=== PATIENT | female | born 1990 ===

== ENCOUNTER 2019-02-02 19:40 | Inpatient (IN) | payer OTHER ==
[2019-02-02] MEDS ORDERED: DINOPROSTONE 10 MG VAGINAL SUPPOSITORY VG ONE (23:26)
[2019-02-02] MEDS ORDERED: AMPICILLIN - 2 GM in SODIUM CHLORIDE 100 ML IVPB ONE (23:28)
[2019-02-02] MEDS ORDERED: DEXTROSE 5%-LACTATED RINGERS 1,000 ML IV SCH (23:30)
[2019-02-02] MEDS ORDERED: PROMETHAZINE HCL 25 MG/1 ML VIAL IVPUSH ONE ×2 (23:30→23:32)
[2019-02-02] MEDS ORDERED: BUTORPHANOL TARTRATE 1 MG/ML VIAL IVPUSH ONE ×2 (23:30→23:32)
--- NOTE | 2019-02-02 23:35 | PN ---
Progress Note (short form) - Note Progress Note: cx 1 cxm 50 vx -3 mr, fhr cat 1, no contraction, cervidil inserted
--- NOTE | 2019-02-02 23:40 | HP ---
Past Medical History - Primary Care Physician PCP:: Matt Hamilton - Admission Chief Complaint: pregancy 39.3 weeks, prom History of Present Illness: 28 yo f 39.3 weeks, c/o of leakage of fluid since 11 am today, clear , no fever, no bleeding, cx 1 cm 50 vx -3 , fclear fluid seen in vaginal vault History Source: Patient Limitations to Obtaining History: No Limitations - Past Medical History ...: 2 ...Para: 1 ...Term: 1 ...: 0 ...Spon : 0 ...Induced : 0 ...LMP: 05/02/ ... Weeks Gestation by Dates: 39.3 ...EDC by Dates: 02/06/19 - Past Surgical History Past Surgical History: Yes: None (LT eye surgery) Hx Myomectomy: No Hx Transabdominal Cerclage: No - Smoking History Have you smoked in the past 12 months: No - Alcohol/Substance Use Hx Alcohol Use: No History of Substance Use: reports: None - Social History Usual Living Arrangement: Yes: With Spouse History of Recent Travel: No Home Medications - Allergies Allergies/Adverse Reactions: Allergies Allergy/AdvReac Type Severity Reaction Status Date / Time No Known Allergies Allergy Verified 02/02/19 20:07 - Home Medications Home Medications: Ambulatory Orders Vitamins (Sjr) - 1 tab PO DAILY 02/02/19 Review of Systems - Review of Systems Constitutional: reports: No Symptoms Eyes: reports: No Symptoms HENT: reports: No Symptoms Neck: reports: No Symptoms Cardiovascular: reports: No Symptoms Respiratory: reports: No Symptoms Gastrointestinal: reports: No Symptoms Genitourinary: reports: No Symptoms Breasts: reports: No Symptoms Reported Musculoskeletal: reports: No Symptoms Integumentary: reports: No Symptoms Neurological: reports: No Symptoms Endocrine: reports: No Symptoms Hematology/Lymphatic: reports: No Symptoms Psychiatric: reports: No Symptoms Physical Exam - Maternity Vital Signs: Vital Signs Temperature 98.2 F 02/02/19 20:11 Pulse Rate 84 02/02/19 20:11 Respiratory Rate 18 02/02/19 20:11 Blood Pressure 118/76 02/02/19 20:11 O2 Sat by Pulse Oximetry (%) Constitutional: Yes: Well Nourished, No Distress, Calm Eyes: Yes: WNL, Conjunctiva Clear, EOM Intact HENT: Yes: WNL, Atraumatic, Normocephalic Neck: Yes: WNL, Supple, Trachea Midline Cardiovascular: Yes: WNL, Regular Rate and Rhythm Breast(s): Yes: WNL - Abdominal Exam/OB Fundal Height: 40 Number of Fetuses: Single Presentation: Vertex Contractions: No Regularity: Irritability Intensity: Unaware Monitor Mode: External Heart Rate Location: [facility] Category: I Accelerations: Non-Uniform Decelerations: None - Vaginal Exam/OB Vaginal Bleediing: No Dilatation (cm): 1 Effacement (%): 50 Amniotic Membrane Status: Ruptured Amniotic Fluid: Yes: Clear Presentation: Vertex/Position Station: -3 - Physical Exam Musculoskeletal: Yes: WNL Extremities: Yes: WNL Edema: LLE: Trace, RLE: Trace Deep Tendon Reflex Grade: Normal +2 ...Motor Strength: WNL Psychiatric: Yes: WNL Hemorrhage Risk Assessment - Risk Factors Medium Risk Factors: Yes: None High Risk Factors: Yes: None Risk Score: 1 Risk Level: Medium Risk Problem List - Problems (1) 39 weeks gestation of Code(s): Z3A.39 - 39 WEEKS GESTATION OF (2) PROM (premature rupture of membranes) Code(s): O42.90 - HANDY ROM, 7TH0 BETW RUPT & ONST LABR, UNSP WEEKS OF GEST Qualifiers: PROM onset of labor timing: unspecified duration between rupture of membranes and onset of labor Assessment/Plan GBS positve, advised ampicillin cervidil induction discussed, rba discussed , agreed have cervidil induction
[2019-02-02 23:55] LABS: BASO % 0.4 % (0-2.0); EOS % 0.7 % (0-4.5); HEMOGLOBIN 9.4 GM/dL (10.7-15.3); LYMPH % 21.8 % (8-40); MCH 30.2 pg (25.7-33.7); MCHC 33.5 g/dl (32.0-36.0); MEAN CELL VOLUME 90.3 fl (80-96); MEAN PLT VOLUME 7.9 fl (7.5-11.1); MONO % 4.3 % (3.8-10.2); NEUT % 72.8 % (42.8-82.8); PLATELET COUNT 261 K/MM3 (134-434); RDW 13.1 % (11.6-15.6); WHITE BLOOD COUNT 11.1 K/mm3 (4.0-10.0)
[2019-02-03] MEDS ORDERED: AMPICILLIN SODIUM 2 GM VIAL ONE (00:03)
[2019-02-03 00:15] LABS: BLOOD UREA NITROGEN 9.3 mg/dL (7-18); CALCIUM 9.1 mg/dL (8.5-10.1); CREATININE 0.6 mg/dL (0.55-1.3); POTASSIUM 3.7 mmol/L (3.5-5.1)
[2019-02-03 00:30] LABS: ACTIVATED PTT 25.2 SECONDS (25.2-36.5); INR 0.93 (0.83-1.09)
[2019-02-03 04:00] VITALS: BMI 27.6
[2019-02-03] MEDS: AMPICILLIN - 1 GM in SODIUM CHLORIDE 100 ML IVPB SCH ×3 (04:00→13:41)
[2019-02-03] MEDS ORDERED: AMPICILLIN SODIUM 1 GM VIAL ONE ×3 (04:03→12:13)
[2019-02-03] MEDS ORDERED: FENTANYL/BUPIVACAINE/NS/PF - PCEA - 50 ML DISP.SYRIN EP ONE (08:20)
[2019-02-03] MEDS ORDERED: LIDOCAINE HCL 1% PRESERVATIVE FREE - 30ML VIAL ONE ×2 (08:32→12:09)
--- NOTE | 2019-02-03 08:59 | PN ---
Progress Note (short form) - Note Progress Note: 815 am cx 4 cm 50 vx -2 , clear fluid , fhr cat 1, irregular contraction, cervidi removed , wants epidural Problem List - Problems (1) 39 weeks gestation of Code(s): Z3A.39 - 39 WEEKS GESTATION OF (2) PROM (premature rupture of membranes) Code(s): O42.90 - HANDY ROM, 7TH0 BETW RUPT & ONST LABR, UNSP WEEKS OF GEST Qualifiers: PROM onset of labor timing: unspecified duration between rupture of membranes and onset of labor
[2019-02-03] MEDS ORDERED: ELECTROLYTE-148 SOLN 1,000 ML IV SCH (09:00)
[2019-02-03] MEDS ORDERED: OXYTOCIN 30 UNITS in 0.9% NS 30 UNIT/500 ML INFUS.BAG IVPB SCH (09:00)
[2019-02-03] MEDS ORDERED: NALOXONE HCL 0.4 MG/ML VIAL IVPUSH PRN (09:40)
[2019-02-03] MEDS ORDERED: FENTANYL/BUPIVACAINE/NS/PF - PCEA - 50 ML DISP.SYRIN EP SCH (09:45)
[2019-02-03] MEDS ORDERED: OXYTOCIN 20 UNITS in 0.9% NS 20 UNIT/1,000 ML INFUS.BAG IV ONE (12:08)
[2019-02-03] MEDS ORDERED: OXYTOCIN 20 UNITS in 0.9% NS 20 UNIT/1,000 ML INFUS.BAG IV SCH (13:00)
[2019-02-03] MEDS ORDERED: IBUPROFEN 600 MG TABLET (FP) PO ONE (17:15)
[2019-02-03] MEDS ORDERED: BENZOCAINE 28 GM HEMORRHOIDAL OINTMENT TP PRN (19:41)
[2019-02-03] MEDS ORDERED: BISACODYL 10 MG SUPP.RECT RC PRN (19:41)
[2019-02-03] MEDS ORDERED: METHYLERGONOVINE MALEATE 0.2 MG/1 ML AMP IM PRN (19:41)
[2019-02-03] MEDS ORDERED: BENZOCAINE 20% 57 GM BOTTLE TP PRN (19:41)
[2019-02-03] MEDS ORDERED: WITCH HAZEL 50% (TUCKS) 40 PAD/JAR PAD TP PRN (19:41)
--- NOTE | 2019-02-03 19:44 | PN ---
Delivery - Delivery Vaginal Delivery: Spontaneous (head deliverd , nasopharynx suctioned , cord around neck once reduced , ant. and post. 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
[2019-02-03] MEDS ORDERED: D5W-LR W/ 20 UNITS OXYTOCIN 20 UNIT/1,000 ML INFUS.BAG IV SCH (19:45)
[2019-02-03] MEDS: ACETAMINOPHEN 325 MG TABLET (FP) PO PRN (21:54)
[2019-02-03] MEDS: IBUPROFEN 600 MG TABLET (FP) PO PRN (21:55)
[2019-02-03] MEDS: FERROUS SO4 325 MG TABLET (FP) PO SCH (21:55)
[2019-02-04 06:37] LABS: BASO % 0.3 % (0-2.0); EOS % 0.8 % (0-4.5); HEMATOCRIT 27.5 % (32.4-45.2); HEMOGLOBIN 9.6 GM/dL (10.7-15.3); LYMPH % 17.6 % (8-40); MCH 31.9 pg (25.7-33.7); MCHC 34.9 g/dl (32.0-36.0); MEAN CELL VOLUME 91.6 fl (80-96); MEAN PLT VOLUME 8.1 fl (7.5-11.1); MONO % 3.6 % (3.8-10.2); NEUT % 77.7 % (42.8-82.8); PLATELET COUNT 263 K/MM3 (134-434); RDW 13.1 % (11.6-15.6); WHITE BLOOD COUNT 10.2 K/mm3 (4.0-10.0)
--- NOTE | 2019-02-04 08:25 | PN ---
Post Progress Note - Subjective Subjective: Patient without acute complaints. Reports tolerating oral intake without nausea or vomiting. Ambulating without dizziness. Denies fevers or chills. Pain well controlled with oral pain medication. without difficulty. Passing flatus. Post Day: 1 Type of Delivery: Vital Signs: Vital Signs Temperature 98.0 F 02/04/19 06:06 Pulse Rate 75 02/04/19 06:06 Respiratory Rate 20 02/04/19 06:06 Blood Pressure 106/63 02/04/19 06:06 O2 Sat by Pulse Oximetry (%) 100 02/03/19 12:15 Breast Exam: Yes: Soft Uterus: Yes: Fundus Firm Abdomen/GI: Yes: Abdomen soft Lochia: Yes: Rubra Lochia, amount: Small Extremities: Yes: Calves non-tender Activity: Ambulating - Labs Labs: CBC WBC 10.2 K/mm3 (4.0-10.0) H 02/04/19 05:30 RBC 3.00 M/mm3 (3.60-5.2) L 02/04/19 05:30 Hgb 9.6 GM/dL (10.7-15.3) L 02/04/19 05:30 Hct 27.5 % (32.4-45.2) L 02/04/19 05:30 MCV 91.6 fl (80-96) 02/04/19 05:30 MCH 31.9 pg (25.7-33.7) 02/04/19 05:30 MCHC 34.9 g/dl (32.0-36.0) 02/04/19 05:30 RDW 13.1 % (11.6-15.6) 02/04/19 05:30 Plt Count 263 K/MM3 (134-434) 02/04/19 05:30 MPV 8.1 fl (7.5-11.1) 02/04/19 05:30 Absolute Neuts (auto) 8.0 K/mm3 (1.5-8.0) 02/04/19 05:30 Neutrophils % 77.7 % (42.8-82.8) 02/04/19 05:30 Lymphocytes % 17.6 % (8-40) 02/04/19 05:30 Monocytes % 3.6 % (3.8-10.2) L 02/04/19 05:30 Eosinophils % 0.8 % (0-4.5) 02/04/19 05:30 Basophils % 0.3 % (0-2.0) 02/04/19 05:30 Nucleated RBC % 0 % (0-0) 02/04/19 05:30 Assessment/Plan PPD#1 VSS, Afebrile Doing well continue routine care Plan D/C in am Blood type O pos no need for RhoGam
[2019-02-04] MEDS: FERROUS SO4 325 MG TABLET (FP) PO SCH ×2 (10:56→22:22)
[2019-02-04] MEDS: PRENATAL VITAMINS W/ FOLIC ACID TABLET (FP) PO SCH (10:56)
[2019-02-04] MEDS: ACETAMINOPHEN 325 MG TABLET (FP) PO PRN ×2 (18:23→22:22)
[2019-02-04] MEDS: IBUPROFEN 600 MG TABLET (FP) PO PRN ×2 (18:24→22:21)
[2019-02-04] MEDS ORDERED: SENNOSIDES/DOCUSATE COMBO (SENNA PLUS) TABLET (UD) PO PRN (22:00)
[2019-02-05] MEDS: PRENATAL VITAMINS W/ FOLIC ACID TABLET (FP) PO SCH (10:03)
[2019-02-05] MEDS: FERROUS SO4 325 MG TABLET (FP) PO SCH (10:03)
--- NOTE | 2019-02-05 11:09 | DS ---
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 Signs: Vital Signs Temperature 98.1 F 02/04/19 21:01 Pulse Rate 81 02/04/19 21:01 Respiratory Rate 18 02/04/19 21:01 Blood Pressure 118/65 02/04/19 21:01 O2 Sat by Pulse Oximetry (%) 100 02/03/19 12:15 Constitutional: Yes: Well Nourished, No Distress, Calm Eyes: Yes: WNL, Conjunctiva Clear, EOM Intact HENT: Yes: WNL, Atraumatic, Normocephalic Neck: Yes: WNL, Supple, Trachea Midline Cardiovascular: Yes: WNL Respiratory: Yes: WNL, Regular, CTA Bilaterally Gastrointestinal: Yes: WNL, Normal Bowel Sounds, Soft Pelvis: Yes: WNL ....Post : Yes: Uterus firm, Uterus non-tender Breast(s): Yes: WNL Musculoskeletal: Yes: WNL Extremities: Yes: WNL Edema: No Integumentary: Yes: WNL Neurological: Yes: WNL, Alert, Oriented ...Motor Strength: WNL Psychiatric: Yes: WNL, Alert, Oriented Labs: CBC, BMP 02/04/19 05:30 02/02/19 23:45 Delivery - Delivery Vaginal Delivery: Spontaneous (head deliverd , nasopharynx suctioned , cord around neck once reduced , ant. and post. 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 Gender: Female Weight: 7 lb 5 oz Position: Left, OA Total Hours ROM (Hrs/Mins): 18 hrs - 1 Minute Total Score: 9 5 Minutes Total Score: 9 - [place] Feeding Plan Initial Plan: Exclusive throughout hospitalization Discharge Summary Reason For Visit: LABOR Current Active Problems 39 weeks gestation of (Acute) PROM (premature rupture of membranes) (Acute) Procedures: Principal: Normal spontaneous vaginal delivery Hospital Course: Unremarkable Condition: Good - Instructions Diet, Activity, Other Instructions: Physical activity Resume your normal everyday activity as tolerated no heavy lifting or exercise until seen by your surgeon. You may walk unlimited katty of and climb stairs. You may resume driving the car when you feel safe and comfortable behind the wheel. No sexual activity as instructed. Wound care If you have a bandage, leave it on, and keep dry for 48-72 hours. After that time discard the outer bandage. If they are tapes on the skin under the out of bandage leave them in place. They will peel off in the next 7 to 10 days. Do Not Peel them off. You may shower the day after surgery. If there are tapes present on the skin, you may shower over them. Diet There are no dietary restrictions. Eat healthy, high-fiber foods. Drink 6 to 8 glasses of liquid each day. This will assist in keeping your bowels are regular. Pain management You may take Tylenol or acetaminophen or Ibuprofen (for example, Motrin, Advil etc.) from my pain prescription medication is ordered should be taken as prescribed for moderate to severe pain. Call MD for any of the following: Severe pain not relieved by medication Fever of 101 or higher Excessive bleeding or drainage on dressing Inability to urinate Referrals: Matt Hamilton MD [Staff Physician] - Disposition: HOME - Home Medications Comprehensive Discharge Medication List: Ambulatory Orders Vitamins (Sjr) - 1 tab PO DAILY 02/02/19
[2019-02-05 11:39] VITALS: BP 131/76; PULSE 84; TEMP 98.2
[2019-02-06 09:06] LABS: POC NITRAZINE NEG
[2019-02-06 09:06] LABS: POC NITRAZINE NEG
== END 2019-02-05 14:10 | disposition home or self-care (01) | DRG 807 ==
LOC: JDEL 19:40 → JLDR 23:05 → J3W 02-03 16:21
PROVIDERS: ADMIT Obstetrics & Gynecology; ATTEND Obstetrics & Gynecology
PROC: 3E0P7VZ Introduction of Hormone into Female Reproductive, Via Natural or Artificial Opening (ICD-10-PCS; 2019-02-02)
PROC: 10E0XZZ Delivery of Products of Conception, External Approach (ICD-10-PCS; principal; 2019-02-03)
PROC: 0HQ9XZZ Repair Perineum Skin, External Approach (ICD-10-PCS; 2019-02-03)
PROC: 0W8NXZZ Division of Female Perineum, External Approach (ICD-10-PCS; 2019-02-03)
DX: O70.0 First degree perineal laceration during delivery (principal); Z37.0 Single live birth; O42.92 Full-term premature rupture of membranes, unspecified as to length of time between rupture and onset of labor; Z3A.39 39 weeks gestation of pregnancy; Z22.330 Carrier of Group B streptococcus
CPT/HCPCS: 36415; 59409; 76819-TC; 80048; 83986-QW; 85025; 85610; 85730; 86593; 86850; 86900; 86901; 87389